=== PATIENT | male | born 1955 | race Caucasian/White ===

== ENCOUNTER 2018-05-08 16:52 | Emergency (ER) | payer BC, OTHER ==
[~2018-05-08] VITALS: Ht 180.3 cm; Wt 83.9 kg
[~2018-05-08 16:52] MED LIST: DILTIAZEM PO
== END 2018-05-08 17:21 | disposition home or self-care (01) ==
LOC: ER 16:54
DX: S61.215A Laceration without foreign body of left ring finger without damage to nail, initial encounter (principal); Z88.0 Allergy status to penicillin; W20.8XXA Other cause of strike by thrown, projected or falling object, initial encounter; Y93.89 Activity, other specified; Y92.89 Other specified places as the place of occurrence of the external cause; Y99.8 Other external cause status
CPT/HCPCS: A4663